=== PATIENT | male | born 1950 | race Caucasian/White ===

== ENCOUNTER 2020-07-30 03:40 | Inpatient (IN) | payer MEDICARE ==
--- NOTE | 2020-07-30 03:58 | ED ---
Recheck HPI - General Chief Complaint: Abdominal Pain Stated Complaint: Pancreatitis Time Seen by Provider: 07/30/20 03:46 Source: patient, EMS, RN notes reviewed, old records reviewed Mode of arrival: EMS Limitations: no limitations - History of Present Illness Initial Comments: This is a 69-year-old male for evaluation. Patient is accepted here in the ER as a transfer from [facility]. Patient has what appears to be in not working on functioning gallbladder with compounding pancreatitis. Patient arrives here in the emergency department feeling well, no recent change in complaints or change in symptoms. Patient was informed at the hospital he does need further evaluation and management. MD Complaint: abnormal lab (What appears to be a gallstone pancreatitis or gallbladder pancreatitis) -: hour(s) Returns Today for: Called Because of Abnormal Lab/Test, needs IV antibiotics, persistent/worsening pain related to initial visit Symptoms Since Prior Visit: worsening pain Context: other (Patient transferred for further evaluation management) Associated Symptoms: nausea, abdominal pain Treatments Prior to Arrival: Given Antibiotics on, Given Pain Meds on - Related Data Home Medications Medication Instructions Recorded Confirmed Atorvastatin [Lipitor] 40 mg PO DAILY 07/30/20 07/30/20 Carbidopa-Levodopa 25-100 mg 1 tab PO BID@1000,1300 07/30/20 07/30/20 [Sinemet 25-100 mg] Carbidopa-Levodopa 25-100 mg 2 tab PO BID@0700,1600 07/30/20 07/30/20 [Sinemet 25-100 mg] Cholecalciferol [Vitamin D3 (25 50 mcg PO DAILY 07/30/20 07/30/20 Mcg = 1000 Iu)] Cyanocobalamin (Vitamin B-12) 1,000 mcg PO BID 07/30/20 07/30/20 [Vitamin B-12] EPINEPHrine (Auto Inject) [Epipen] 0.3 mg IM ONCE PRN 07/30/20 07/30/20 FLUoxetine HCL [PROzac] 20 mg PO DAILY 07/30/20 07/30/20 Gemfibrozil [Lopid] 600 mg PO DAILY 07/30/20 07/30/20 amLODIPine [Norvasc] 10 mg PO DAILY 07/30/20 07/30/20 Previous Rx's Medication Instructions Recorded hydrALAZINE HCL [Apresoline] 50 mg PO TID #90 tab 08/02/20 Allergies Allergy/AdvReac Type Severity Reaction Status Date / Time aspirin Allergy Anaphylaxis Verified 07/30/20 07:15 cyclobenzaprine Allergy Anaphylaxis Verified 07/30/20 07:15 [From Flexeril] Penicillins Allergy Anaphylaxis Verified 07/30/20 07:15 Review of Systems ROS Statement: Those systems with pertinent positive or pertinent negative responses have been documented in the HPI. ROS Other: All systems not noted in ROS Statement are negative. Past Medical History Past Medical History: Hyperlipidemia, Hypertension Additional Past Medical History / Comment(s): Parkinsons, Fibromyalgia History of Any Multi-Drug Resistant Organisms: None Reported Past Surgical History: Unable to Obtain Past Psychological History: Anxiety, Depression Smoking Status: Former smoker Past Alcohol Use History: Occasional Past Drug Use History: None Reported - Past Family History Father Additional Family Medical History / Comment(s): Father never went to the doctors. He lived to be 83 yrs old. Mother Family Medical History: Coronary Artery Disease (CAD), Diabetes Mellitus, Myocardial Infarction (CO) Additional Family Medical History / Comment(s): Mother of a CO at the age of 61 yrs. General Exam Limitations: no limitations General appearance: alert, in no apparent distress Head exam: Present: atraumatic, normocephalic, normal inspection Eye exam: Present: normal appearance, PERRL, EOMI. Absent: scleral icterus, conjunctival injection, periorbital swelling ENT exam: Present: normal exam, mucous membranes moist Neck exam: Present: normal inspection. Absent: tenderness, meningismus, lymphadenopathy Respiratory exam: Present: normal lung sounds bilaterally. Absent: respiratory distress, wheezes, rales, rhonchi, stridor Cardiovascular Exam: Present: regular rate, normal rhythm, normal heart sounds. Absent: systolic murmur, diastolic murmur, rubs, gallop, clicks GI/Abdominal exam: Present: soft, normal bowel sounds. Absent: distended, tenderness, guarding, rebound, rigid Extremities exam: Present: normal inspection, full ROM, normal capillary refill. Absent: tenderness, pedal edema, joint swelling, calf tenderness Back exam: Present: normal inspection Neurological exam: Present: alert, oriented X3, CN II-XII intact Psychiatric exam: Present: normal affect, normal mood Skin exam: Present: warm, dry, intact, normal color. Absent: rash Course Vital Signs 07/30/20 07/30/20 07/30/20 03:42 07:12 11:22 Temperature 98.5 F 98 F 98.0 F Pulse Rate 93 87 89 Respiratory 16 18 18 Rate Blood Pressure 129/63 129/75 153/89 O2 Sat by Pulse 95 99 99 Oximetry 07/30/20 07/30/20 07/30/20 16:13 20:15 22:54 Temperature 98.3 F 98.1 F Pulse Rate 92 100 98 Respiratory 18 18 18 Rate Blood Pressure 137/89 128/84 128/84 O2 Sat by Pulse 94 L 90 L 95 Oximetry - Reevaluation(s) Reevaluation #1: Medical record is reviewed Patient symptoms improved here in the ER Patient family informed of results, questions have been answered Medical Decision Making - Medical Decision Making 69 male to the ER for evaluation of pancreatitis likely gallbladder cause. Patient will be admitted for surgical evaluation management - Lab Data Result diagrams: 08/02/20 06:08 08/02/20 06:08 - Radiology Data Radiology results: report reviewed (Ultrasound gallbladder is pending), image reviewed Disposition Clinical Impression: Abdominal pain, Acute pancreatitis, Gallstone pancreatitis, Leukocytosis Disposition: ADMITTED IP TO THIS [facility] Condition: Fair Is patient prescribed a controlled substance at d/c from ED?: No
[2020-07-30] MEDS ORDERED: IBUPROFEN 400 MG TAB PO PRN (06:00)
[2020-07-30] MEDS ORDERED: NALOXONE 0.4 MG/ML 1 ML VIAL IV PRN (06:00)
[2020-07-30] MEDS: MORPHINE SULFATE 4 MG/ML SYRINGE IV PRN ×2 (06:14→11:25)
[2020-07-30] MEDS ORDERED: PANTOPRAZOLE 40 MG/10 ML VIAL IV SCH (09:00)
[2020-07-30] MEDS ORDERED: ENOXAPARIN 40 MG/0.4 ML SYRINGE SQ SCH (09:00)
[2020-07-30] MEDS: SODIUM CHLORIDE 0.9% 1,000 ML IV SCH ×2 (09:15→17:52)
[2020-07-30 10:47] LABS: Basophils % (A) 0 %; Eosinophils % (A) 0 %; HCT 37.9 % (39.0-53.0); HGB 12.9 gm/dL (13.0-17.5); Lymphocytes # (A) 0.5 k/uL (1.0-4.8); Lymphocytes % (A) 4 %; MCV 85.2 fL (80.0-100.0); Mean Platelet Volume 6.2; Monocytes # (A) 0.6 k/uL (0-1.0); Monocytes % (A) 5 %; Neutrophils # (A) 11.5 k/uL (1.3-7.7); Neutrophils % (A) 91 %; Platelet Count 272 k/uL (150-450); RBC 4.45 m/uL (4.30-5.90); RDW 13.6 % (11.5-15.5); WBC 12.6 k/uL (3.8-10.6)
[2020-07-30 10:51] LABS: AST 408 U/L (17-59); African American GFR (CKD) 23 (>60 ml/min/1.73 sqM); Albumin/Globulin Ratio 1.6; Alkaline Phosphatase 67 U/L (38-126); Anion Gap 11 mmol/L; Blood Urea Nitrogen 51 mg/dL (9-20); Calcium 9.5 mg/dL (8.4-10.2); Carbon Dioxide 23 mmol/L (22-30); Chloride 107 mmol/L (98-107); Globulin 2.5 g/dL; Glucose 184 mg/dL (74-99); Non-African American GFR(CKD) 20 (>60 ml/min/1.73 sqM); Potassium 5.4 mmol/L (3.5-5.1); Sodium 141 mmol/L (137-145); Total Bilirubin 1.4 mg/dL (0.2-1.3); Total Protein 6.5 g/dL (6.3-8.2)
[2020-07-30 10:53] LABS: ALT 85 U/L (4-49)
--- NOTE | 2020-07-30 11:16 | CONS ---
CONSULTATION DATE OF DICTATION: July 30, 2020. REASON FOR CONSULTATION: Acute gallstone pancreatitis. HISTORY OF PRESENT ILLNESS: The patient is a 69-year-old pleasant white male who was transferred from [facility] where he presented with acute onset of severe epigastric pain that started yesterday morning. The pain had progressively got worse and he had multiple episodes of nausea, vomiting. He denies any fever, chills, or night sweats. Never had these symptoms in the past. He went to the emergency room at [facility] and he was noted to have elevated lipase to more than 40,000 and mild elevation of serum transaminases and hence he was transferred to [facility] for further management. He did have a CT of the abdomen and pelvis done at [facility] and the preliminary report showed small gallstones but no biliary ductal dilation. He is feeling somewhat better this morning. Nausea and vomiting has resolved. He never had these symptoms in the past. PAST MEDICAL HISTORY: Past medical history is significant for hypertension, hyperlipidemia, Parkinson disease, anxiety, depression. MEDICATIONS: Medications at home: Norvasc, Lopid, Prozac, Vasotec, vitamin B12, Sinemet, Lipitor and EpiPen. ALLERGIES: Allergies to PENICILLIN, FLEXERIL, and ASPIRIN. SOCIAL HISTORY: No smoking. No alcohol use. PAST SURGICAL HISTORY: Unremarkable. REVIEW OF SYSTEMS: CARDIOPULMONARY: He denies any chest pain or shortness of breath. GENITOURINARY: No dysuria or hematuria. MUSCULOSKELETAL: Unremarkable. SKIN: Unremarkable. ENDOCRINE: Unremarkable. PSYCHIATRIC: Unremarkable. NEUROLOGY: Unremarkable. ENT/VISION: Unremarkable. CONSTITUTIONAL: No recent weight loss. No fever, chills, night sweats. PHYSICAL EXAMINATION: He appears comfortable, no apparent distress. Vital signs are stable. Blood pressure is 129/63, pulse rate 93, temperature 98.5. HEENT EXAMINATION: Unremarkable. Conjunctivae pink. Sclerae anicteric. Oral cavity no lesions. NECK: No JVD or lymph node enlargement. CHEST: Was clear to auscultation. HEART: Regular rate and rhythm. ABDOMEN: Soft. There was severe tenderness in the epigastric area. Rest of the abdomen was benign. Bowel sounds are positive. No organomegaly. EXTREMITIES: No pedal edema. SKIN: No rashes. NEURO: He is alert and oriented x3. No focal deficits. LABS: Labs done at [facility], lipase more than 40,000. T-bilirubin was 1.8. AST was 284, ALT 241. WBC was 20,000, hemoglobin 15.3, platelets normal. IMPRESSION: 1. This is a patient who presents to the hospital with acute onset of severe epigastric pain that started yesterday morning and noted to have elevated lipase consistent with acute pancreatitis. He is also noted to have mild elevation of serum transaminases and bilirubin up to 1.8 and CAT scan of the abdomen done at [facility] showed multiple gallstones but no biliary ductal dilation. Most likely we are dealing with acute gallstone pancreatitis. 2. Leukocytosis, related to pancreatitis. 3. History of hypertension and hyperlipidemia. RECOMMENDATIONS: 1. Aggressive IV hydration. 2. Symptomatic and supportive care. 3. Pain medications as needed. 4. Repeat labs this morning. 5. No plans for any endoscopy intervention at the present time. However, we will consider an ERCP based on his clinical course biochemical parameters. The plan was discussed with the patient. He is agreeable to it. Thank you for this consultation. MMODL / IJN: [id number] /
--- NOTE | 2020-07-30 12:26 | US ---
EXAMINATION TYPE: US gallbladder DATE OF EXAM: 07/30/2020 COMPARISON: [address] CLINICAL HISTORY: pain. 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 Liver diffusely heterogeneous which may represent diffuse hepatocellular disease, hepatitis or hep atic steatosis. 2. No gallbladder stones.
[2020-07-30 12:34] LABS: Lipase >20000 U/L (23-300)
--- NOTE | 2020-07-30 13:16 | P.GSCN ---
History of Present Illness Consult date: 07/30/20 History of present illness: CHIEF COMPLAINT: Abdominal pain HISTORY OF PRESENT ILLNESS: This is a 69-year-old male who was a transfer from [facility]. Patient has a known past medical history hypertension, hyperlipidemia, Parkinson's and fibromyalgia. Patient initially presented to [place] with a 2 day history of epigastric abdominal pain. He reports pain worsened last night around 8 PM. He was having nausea and vomiting. The pain started on the right side of his abdomen crossed into the epigastric area and also had pain radiating to his back. He denies any fever, chills or sweats. Denies having any symptoms like this in the past. He had a lipase that was elevated at 40,000 and mildly elevated liver enzymes noted on labs from [place]. Patient had a computed tomography scan of the abdomen and pelvis at [place] they had shown severe acute inflammation changes are results of gastritis, duodenitis, duodenitis, pancreatitis and cholecystitis. Punctate calculus within the duodenum at the sphincter body and gallbladder wall thickening and gallbladder wall distention with calculi in the gallbladder. Patient has been admitted to the hospital for pancreatitis. He is currently nothing by mouth and receiving IV fluids. GI is also on the case. PAST MEDICAL HISTORY: See list. PAST SURGICAL HISTORY: See list. MEDICATIONS: See list. ALLERGIES: See list. SOCIAL HISTORY: No illicit drug use. REVIEW OF SYSTEMS: CONSTITUTIONAL: Denies fever or chills. HEENT: Denies blurred vision, vision changes, or eye pain. Denies hemoptysis CARDIOVASCULAR: Denies chest pain or pressure. RESPIRATORY: No shortness of breath. GASTROINTESTINAL: See HPI for pertinent findings HEMATOLOGIC: Denies bleeding disorders. GENITOURINARY: Denies any blood in urine or increased urinary frequency. SKIN: Denies pruitis. Denies rash. PHYSICAL EXAM: VITAL SIGNS: Reviewed GENERAL: Well-developed in no acute distress. HEENT: No sclera icterus. Extraocular movements grossly intact. Moist buccal mucosa. Head is atraumatic, normocephalic. No nasal drainage. ABDOMEN: Soft. Nondistended. Tenderness with palpation of the epigastric area and right upper quadrant NEUROLOGIC: Alert and oriented. Cranial nerves II through XII grossly intact. LABORATORY DATA: [place] labs WBC 20 Hgb 13.1 and creatinine 2.8 AST 271 ALT 24 total bili 1.4 lipase 40,000 [facility] labs WBC 12.6 Hgb 12.9 potassium 5.4 creatinine 3 Total bili 1.4 AST 408 ALT 85 alk phos 67 lipase 20,000 IMAGING: Gallbladder ultrasound liver diffusely heterogenesis which may represent diffuse hepatocellular disease, hepatitis or hepatic steatosis. No gallbladder stones ASSESSMENT: 1. Acute pancreatitis PLAN: -Keep patient nothing by mouth -Continue IV fluids -Continue pain medication as needed -Await GIs decision regarding ERCP -Follow up on labs in a.m. -Further recommendations forthcoming per surgeon Thank you for this consultation Physician Marketing Agent note has been reviewed by physician. Signing provider agrees with the documented findings, assessment, and plan of care. Past Medical History Past Medical History: Hyperlipidemia, Hypertension Additional Past Medical History / Comment(s): Parkinsons, Fibromyalgia History of Any Multi-Drug Resistant Organisms: None Reported Past Surgical History: Unable to Obtain Past Psychological History: Anxiety, Depression Smoking Status: Former smoker Past Alcohol Use History: Occasional Past Drug Use History: None Reported Medications and Allergies Home Medications Medication Instructions Recorded Confirmed Type Atorvastatin [Lipitor] 40 mg PO DAILY 07/30/20 07/30/20 History Carbidopa-Levodopa 25-100 mg 1 tab PO BID@1000,1300 07/30/20 07/30/20 History [Sinemet 25-100] Carbidopa-Levodopa 25-100 mg 2 tab PO BID@0700,1600 07/30/20 07/30/20 History [Sinemet 25-100] Cholecalciferol [Vitamin D3 (25 50 mcg PO DAILY 07/30/20 07/30/20 History Mcg = 1000 Iu)] Cyanocobalamin (Vitamin B-12) 1,000 mcg PO BID 07/30/20 07/30/20 History [Vitamin B-12] EPINEPHrine (Auto Inject) [Epipen] 0.3 mg IM ONCE PRN 07/30/20 07/30/20 History Enalapril [Vasotec] 20 mg PO BID 07/30/20 07/30/20 History FLUoxetine HCL [PROzac] 20 mg PO DAILY 07/30/20 07/30/20 History Gemfibrozil [Lopid] 600 mg PO DAILY 07/30/20 07/30/20 History amLODIPine [Norvasc] 10 mg PO DAILY 07/30/20 07/30/20 History Allergies Allergy/AdvReac Type Severity Reaction Status Date / Time aspirin Allergy Anaphylaxis Verified 07/30/20 07:15 cyclobenzaprine Allergy Anaphylaxis Verified 07/30/20 07:15 [From Flexeril] Penicillins Allergy Anaphylaxis Verified 07/30/20 07:15 Surgical - Exam Vital Signs Temp Pulse Resp BP Pulse Ox 98.5 F 93 16 129/63 95 07/30/20 03:42 07/30/20 03:42 07/30/20 03:42 07/30/20 03:42 07/30/20 03:42 Results - Labs 07/30/20 10:25 07/30/20 10:25 Abnormal Lab Results - Last 24 Hours (Table) 07/30/20 07/30/20 Range/Units 10:25 10:25 WBC 12.6 H (3.8-10.6) k/uL Hgb 12.9 L (13.0-17.5) gm/dL Hct 37.9 L (39.0-53.0) % Neutrophils # 11.5 H (1.3-7.7) k/uL Lymphocytes # 0.5 L (1.0-4.8) k/uL Potassium 5.4 H (3.5-5.1) mmol/L BUN 51 H (9-20) mg/dL Creatinine 3.00 H (0.66-1.25) mg/dL Glucose 184 H (74-99) mg/dL Total Bilirubin 1.4 H (0.2-1.3) mg/dL AST 408 H (17-59) U/L ALT 85 H (4-49) U/L Lipase >27317 H (23-300) U/L Diabetes panel 07/30/20 Range/Units 10:25 Sodium 141 (137-145) mmol/L Potassium 5.4 H (3.5-5.1) mmol/L Chloride 107 (98-107) mmol/L Carbon Dioxide 23 (22-30) mmol/L BUN 51 H (9-20) mg/dL Creatinine 3.00 H (0.66-1.25) mg/dL Glucose 184 H (74-99) mg/dL Calcium 9.5 (8.4-10.2) mg/dL AST 408 H (17-59) U/L ALT 85 H (4-49) U/L Alkaline Phosphatase 67 (38-126) U/L Total Protein 6.5 (6.3-8.2) g/dL Albumin 4.0 (3.5-5.0) g/dL Calcium panel 07/30/20 Range/Units 10:25 Calcium 9.5 (8.4-10.2) mg/dL Albumin 4.0 (3.5-5.0) g/dL Pituitary panel 07/30/20 Range/Units 10:25 Sodium 141 (137-145) mmol/L Potassium 5.4 H (3.5-5.1) mmol/L Chloride 107 (98-107) mmol/L Carbon Dioxide 23 (22-30) mmol/L BUN 51 H (9-20) mg/dL Creatinine 3.00 H (0.66-1.25) mg/dL Glucose 184 H (74-99) mg/dL Calcium 9.5 (8.4-10.2) mg/dL Adrenal panel 07/30/20 Range/Units 10:25 Sodium 141 (137-145) mmol/L Potassium 5.4 H (3.5-5.1) mmol/L Chloride 107 (98-107) mmol/L Carbon Dioxide 23 (22-30) mmol/L BUN 51 H (9-20) mg/dL Creatinine 3.00 H (0.66-1.25) mg/dL Glucose 184 H (74-99) mg/dL Calcium 9.5 (8.4-10.2) mg/dL Total Bilirubin 1.4 H (0.2-1.3) mg/dL AST 408 H (17-59) U/L ALT 85 H (4-49) U/L Alkaline Phosphatase 67 (38-126) U/L Total Protein 6.5 (6.3-8.2) g/dL Albumin 4.0 (3.5-5.0) g/dL
[2020-07-30] MEDS: HYDROmorphone 1 MG/ML 1 ML SYRINGE IVP PRN (14:51)
[2020-07-30] MEDS ORDERED: HYDROmorphone 0.5 MG/0.5 ML SYRINGE IVP PRN (15:14)
--- NOTE | 2020-07-30 15:16 | P.HPIM ---
History of Present Illness Patient is a 69-year-old [facility] male was transferred from a [facility] admitted with severe epigastric abdominal pain along with nausea vomiting multiple episodes. Patient will had a CT of the abdomen also found to have highly elevated lipase was subsequently transferred here for management of pancreatitis CT did show some duodenitis gastritis and possibility of cholecystitis. Surgery evaluated the patient repeated ultrasound of the gallbladder which didn't show any gallstones at this time. Patient does have leukocytosis patient the was having severe abdominal pain which significantly improved today. Patient lipase continues to be elevated. Gastroenterology was consulted as well with concerns of choledocholithiasis although these were not evident on the gallbladder ultrasound. Patient does have history of Parkinson's and patient does have some residual parkinsonian tremor. Patient's creatinine is found to be around 3 his baseline is not available. Review of Systems REVIEW OF SYSTEMS: CONSTITUTIONAL: No fever, no malaise, no fatigue. HEENT: No recent visual problems or hearing problems. Denied any sore throat. CARDIOVASCULAR: No chest pain, orthopnea, PND, no palpitations, no syncope. PULMONARY: No shortness of breath, no cough, no hemoptysis. GASTROINTESTINAL: As mentioned in HPI NEUROLOGICAL: No headaches, no weakness, no numbness. HEMATOLOGICAL: Denies any bleeding or petechiae. GENITOURINARY: Denies any burning micturition, frequency, or urgency. MUSCULOSKELETAL/RHEUMATOLOGICAL: Denies any joint pain, swelling, or any muscle pain. ENDOCRINE: Denies any polyuria or polydipsia. The rest of the 14-point review of systems is negative. Past Medical History Past Medical History: Hyperlipidemia, Hypertension Additional Past Medical History / Comment(s): Parkinsons, Fibromyalgia History of Any Multi-Drug Resistant Organisms: None Reported Past Surgical History: Unable to Obtain Past Psychological History: Anxiety, Depression Smoking Status: Former smoker Past Alcohol Use History: Occasional Past Drug Use History: None Reported Medications and Allergies Home Medications Medication Instructions Recorded Confirmed Type Atorvastatin [Lipitor] 40 mg PO DAILY 07/30/20 07/30/20 History Carbidopa-Levodopa 25-100 mg 1 tab PO BID@1000,1300 07/30/20 07/30/20 History [Sinemet 25-100] Carbidopa-Levodopa 25-100 mg 2 tab PO BID@0700,1600 07/30/20 07/30/20 History [Sinemet 25-100] Cholecalciferol [Vitamin D3 (25 50 mcg PO DAILY 07/30/20 07/30/20 History Mcg = 1000 Iu)] Cyanocobalamin (Vitamin B-12) 1,000 mcg PO BID 07/30/20 07/30/20 History [Vitamin B-12] EPINEPHrine (Auto Inject) [Epipen] 0.3 mg IM ONCE PRN 07/30/20 07/30/20 History Enalapril [Vasotec] 20 mg PO BID 07/30/20 07/30/20 History FLUoxetine HCL [PROzac] 20 mg PO DAILY 07/30/20 07/30/20 History Gemfibrozil [Lopid] 600 mg PO DAILY 07/30/20 07/30/20 History amLODIPine [Norvasc] 10 mg PO DAILY 07/30/20 07/30/20 History Allergies Allergy/AdvReac Type Severity Reaction Status Date / Time aspirin Allergy Anaphylaxis Verified 07/30/20 07:15 cyclobenzaprine Allergy Anaphylaxis Verified 07/30/20 07:15 [From Flexeril] Penicillins Allergy Anaphylaxis Verified 07/30/20 07:15 Physical Exam Vitals: Vital Signs Temp Pulse Resp BP Pulse Ox 07/30/20 11:22 98.0 F 89 18 153/89 99 07/30/20 07:12 98 F 87 18 129/75 99 07/30/20 03:42 98.5 F 93 16 129/63 95 Intake and Output 07/30/20 07/30/20 07/30/20 06:59 14:59 22:59 Other: Weight 75.75 kg PHYSICAL EXAMINATION: GENERAL: The patient is alert and oriented x3, not in any acute distress. Well developed, well nourished. HEENT: Pupils are round and equally reacting to light. EOMI. No scleral icterus. No conjunctival pallor. Normocephalic, atraumatic. No pharyngeal erythema. No thyromegaly. CARDIOVASCULAR: S1 and S2 present. No murmurs, rubs, or gallops. PULMONARY: Chest is clear to auscultation, no wheezing or crackles. ABDOMEN: Soft, mild tenderness in the epigastric area, nondistended, normoactive bowel sounds. No palpable organomegaly. MUSCULOSKELETAL: No joint swelling or deformity. EXTREMITIES: No cyanosis, clubbing, or pedal edema. NEUROLOGICAL: Gross neurological examination did not reveal any focal deficits. SKIN: No rashes. Results CBC & Chem 7: 07/30/20 10:25 07/30/20 10:25 Labs: Abnormal Lab Results - Last 24 Hours (Table) 07/30/20 07/30/20 Range/Units 10:25 10:25 WBC 12.6 H (3.8-10.6) k/uL Hgb 12.9 L (13.0-17.5) gm/dL Hct 37.9 L (39.0-53.0) % Neutrophils # 11.5 H (1.3-7.7) k/uL Lymphocytes # 0.5 L (1.0-4.8) k/uL Potassium 5.4 H (3.5-5.1) mmol/L BUN 51 H (9-20) mg/dL Creatinine 3.00 H (0.66-1.25) mg/dL Glucose 184 H (74-99) mg/dL Total Bilirubin 1.4 H (0.2-1.3) mg/dL AST 408 H (17-59) U/L ALT 85 H (4-49) U/L Lipase >22342 H (23-300) U/L Assessment and Plan Plan: -Acute pancreatitis: Etiology is not clear patient is not an alcoholic. Patient will be continued on IV fluids patient will remain nothing by mouth bowel rest. Although some of his medications his medications like carbidopa levodopa and Prozac. Gastroenterology and general surgery will evaluated the patient -Renal failure: Unsure whether patient has acute renal failure on chronic kidney disease as I do not have had his baseline available patient will be started on fluids we'll repeat his liver enzymes basic metabolic profile tomorrow. -Hyperkalemia: Secondary to lisinopril and acute renal failure which will be held -Hypertension patient is on Norvasc which will be resumed -Gastritis duodenitis for which patient will be on Protonix -DVT prophylaxis with Lovenox
[2020-07-30] MEDS: CARBIDOPA-LEVODOPA 25-100 MG 1 EACH TAB PO SCH (17:52)
[2020-07-30] MEDS: PANTOPRAZOLE 40 MG/10 ML VIAL IV SCH (21:19)
[2020-07-31] MEDS: SODIUM CHLORIDE 0.9% 1,000 ML IV SCH ×4 (04:13→21:44)
[2020-07-31] MEDS: amLODIPine 10 MG TAB PO SCH (08:11)
[2020-07-31] MEDS: ENOXAPARIN 30 MG/0.3 ML SYRINGE SQ SCH (08:11)
[2020-07-31] MEDS: FLUoxetine HCL 20 MG CAP PO SCH (08:12)
[2020-07-31] MEDS: CARBIDOPA-LEVODOPA 25-100 MG 1 EACH TAB PO SCH ×4 (08:12→16:12)
[2020-07-31] MEDS: PANTOPRAZOLE 40 MG/10 ML VIAL IV SCH ×2 (08:12→21:44)
[2020-07-31] MEDS: HYDROmorphone 1 MG/ML 1 ML SYRINGE IVP PRN ×2 (08:19→21:55)
[2020-07-31 12:38] LABS: African American GFR (CKD) 19.2 (60.0-200.0); Albumin 3.9 g/dL (3.80-4.90); Albumin/Globulin Ratio 1.95 (1.60-3.17); Anion Gap 13.1 mmol/L (4.00-12.00); Calcium 9.4 mg/dL (8.7-10.3); Carbon Dioxide 19.9 mmol/L (21.6-31.8); Magnesium 1.6 mg/dL (1.5-2.4); Non-African American GFR(CKD) 16.6 (60.0-200.0); Potassium 4.9 mmol/L (3.5-5.5); Total Bilirubin 0.9 mg/dL (0.2-1.2); Total Protein 5.9 g/dL (6.2-8.2)
--- NOTE | 2020-07-31 12:59 | P.PN ---
Subjective Progress Note Date: 07/31/20 Principal diagnosis: Epigastric pain, pancreatitis This is a pleasant 69-year-old male patient who was transferred from [facility] very presented with acute onset of severe epigastric pain that started 2 days ago. The pain progressively got worse he had multiple episodes of nausea and vomiting. He denied any fevers or chills. At [facility] he was noted to have an elevated lipase greater than 40,000 subcu was transferred to [facility]. He had a CT of the abdomen and pelvis done at [facility] that showed small gallstones but no biliary ductal dilation. Today the patient is seen and examined lying in bed. He states his abdominal pain has improved. He denies any nausea or vomiting. He has been afebrile with no acute changes through the night. His lipase continues to improve and his 1923 compared to yesterday at greater than 20,000. Total bilirubin 0.9, AST 65, ALT 57, and alkaline phosphatase 52. Objective - Vital Signs Vital signs: Vital Signs Temp 98.0 F 07/31/20 04:58 Pulse 100 07/31/20 04:58 Resp 20 07/31/20 04:58 BP 134/80 07/31/20 04:58 Pulse Ox 95 07/31/20 04:58 Intake & Output 07/30/20 07/31/20 07/31/20 18:59 06:59 18:59 Weight 75.75 kg Other: Voiding Method Toilet Toilet - Exam General appearance: The patient is alert, oriented, appears in no acute distress. HET: Head is normocephalic and atraumatic. Conjunctiva pink. Sclera anicteric. Neck: Supple without lymphadenopathy. Abdomen: Soft, mild epigastric tenderness, nondistended with bowel sounds. No guarding or rigidity. Extremities: Normal skin color and turgor. No pedal edema Skin: No rashes, no jaundice Neurological: No focal deficits. Alert and oriented 3. - Labs CBC & Chem 7: 07/30/20 10:25 07/31/20 06:53 Labs: Abnormal Lab Results - Last 24 Hours (Table) 07/30/20 Range/Units 10:25 Potassium 5.4 H (3.5-5.1) mmol/L BUN 51 H (9-20) mg/dL Creatinine 3.00 H (0.66-1.25) mg/dL Glucose 184 H (74-99) mg/dL Total Bilirubin 1.4 H (0.2-1.3) mg/dL AST 408 H (17-59) U/L ALT 85 H (4-49) U/L Lipase >44526 H (23-300) U/L Assessment and Plan (1) Epigastric pain Narrative/Plan: This is 69-year-old gentleman who was a transfer from [facility] acute severe epigastric pain that started 2 days ago, he was noted to have an elevated lipase consistent with acute pancreatitis. He was also noted to have mild elevation of serum transaminases and bilirubin up to 1.8. A computed tomography scan of the abdomen done at [facility] showed multiple stones but no biliary ductal dilation. Most likely dealing with acute gallstone pancreatitis. Current Visit: Yes Status: Acute Code(s): R10.13 - EPIGASTRIC PAIN SNOMED Code(s): 90102671 (2) Acute pancreatitis Narrative/Plan: Leukocytosis related to pancreatitis Current Visit: Yes Status: Acute Code(s): K85.90 - ACUTE PANCREATITIS WITHOUT NECROSIS OR INFECTION, UNSP SNOMED Code(s): 125852357 Plan: 1. Continue supportive care 2. Aggressive IV hydration 3. Pain medication as needed 4. Repeat LFTs, lipase in the morning 5. No plans for any endoscopic intervention at this time. We will continue to monitor. 6. Patient may have clear liquid diet 7. Surgery on consult, planning for cholecystectomy tomorrow with Dr. Shane Thank you for this consultation we will continue to follow Dr. Rufina Kapoor I agree with the dictator's note, documented as a scribe by Karen Ness.
[2020-07-31 13:03] LABS: Basophils # (A) 0.01 X 10*3/uL (0.00-0.10); Basophils % (A) 0.1 %; Crenated RBC 2+; Eosinophils # (A) 0 X 10*3/uL (0.04-0.35); Eosinophils % (A) 0 %; HCT 38.7 % (39.6-50.0); HGB 12.5 g/dL (13.0-17.0); Lymphocytes # (A) 0.46 X 10*3/uL (0.90-5.00); Lymphocytes % (A) 3.2 %; MCHC 32.3 g/dL (32.0-37.0); MCV 89.8 fL (80.0-97.0); Mean Platelet Volume 9.4 fL (9.5-12.2); Monocytes # (A) 0.68 X 10*3/uL (0.20-1.00); Monocytes % (A) 4.7 %; Neutrophils # (A) 13.25 X 10*3/uL (1.80-7.70); Neutrophils % (A) 91.5 %; Platelet Count 214 X 10*3/uL (140-440); RBC 4.31 X 10*6/uL (4.40-5.60); RDW 13.5 % (11.5-14.5); WBC 14.47 X 10*3/uL (4.50-10.00)
[2020-07-31 14:08] VITALS: BMI 23.9
--- NOTE | 2020-07-31 15:02 | P.PN ---
Subjective Progress Note Date: 07/31/20 CHIEF COMPLAINT: Abdominal pain HISTORY OF PRESENT ILLNESS: Patient is followed for his gallstone pancreatitis. He is still requiring the Dilaudid for epigastric pain. However, does report that the pain is decreased from yesterday. He denies any nausea or vomiting. Afebrile. WBC up at 14.47 hemoglobin 12.5 potassium 4.9 creatinine 3.5 total bilirubin 0.9 AST 65 ALT 57 lipase 1923 PHYSICAL EXAM: VITAL SIGNS: Reviewed. GENERAL: Well-developed in no acute distress. HEENT: No sclera icterus. Extraocular movements grossly intact. Moist buccal mucosa. Head is atraumatic, normocephalic. ABDOMEN: Soft. Nondistended. Epigastric tenderness NEUROLOGIC: Alert and oriented. Cranial nerves II through XII grossly intact. ASSESSMENT: 1. Acute pancreatitis most likely due to gallstones PLAN: -Patient is scheduled for laparoscopic cholecystectomy with Dr. Shane tomorrow, 08/01/2020 -Patient can have clear liquid diet and then nothing by mouth after midnight -Continue IV fluids -Continue pain medication as needed -Follow up on labs in a.m. Physician Manager Room note has been reviewed by physician. Signing provider agrees with the documented findings, assessment, and plan of care. Objective - Vital Signs Vital signs: Vital Signs Temp 97.8 F 07/31/20 13:10 Pulse 102 H 07/31/20 13:10 Resp 20 07/31/20 13:10 BP 131/78 07/31/20 13:10 Pulse Ox 94 L 07/31/20 13:10 Intake & Output 07/30/20 07/31/20 07/31/20 18:59 06:59 18:59 Weight 75.75 kg 75.75 kg Other: Voiding Method Toilet Toilet - Labs CBC & Chem 7: 07/31/20 06:53 07/31/20 06:53 Labs: Abnormal Lab Results - Last 24 Hours (Table) 07/31/20 07/31/20 Range/Units 06:53 06:53 WBC 14.47 H (4.50-10.00) X 10*3/uL RBC 4.31 L (4.40-5.60) X 10*6/uL Hgb 12.5 L (13.0-17.0) g/dL Hct 38.7 L (39.6-50.0) % MPV 9.4 L (9.5-12.2) fL Immature Gran # 0.07 H (0.00-0.04) X 10*3/uL Neutrophils # 13.25 H (1.80-7.70) X 10*3/uL Lymphocytes # 0.46 L (0.90-5.00) X 10*3/uL Eosinophils # 0 L (0.04-0.35) X 10*3/uL Chloride 112 H (96-109) mmol/L Carbon Dioxide 19.9 L (21.6-31.8) mmol/L Anion Gap 13.10 H (4.00-12.00) mmol/L BUN 63.0 H (9.0-27.0) mg/dL Creatinine 3.5 H (0.6-1.5) mg/dL Est GFR (CKD-EPI)AfAm 19.2 L (60.0-200.0) Est GFR (CKD-EPI)NonAf 16.6 L (60.0-200.0) Glucose 145 H (70-110) mg/dL AST 65 H (14-35) U/L ALT 57 H (10-49) U/L Total Protein 5.9 L (6.2-8.2) g/dL Lipase 1923 H (14-60) U/L
[2020-07-31] MEDS ORDERED: LEVOFLOXACIN 500MG-D5W PMX 500 MG in DEXTROSE/WATER 1 100ML.BAG IVPB SCH (15:15)
--- NOTE | 2020-07-31 16:38 | P.PN ---
Subjective Progress Note Date: 07/31/20 Patient is a 69-year-old pleasant male was transferred from a [facility] admitted with severe epigastric abdominal pain along with nausea vomiting multiple episodes. Patient will had a CT of the abdomen also found to have highly elevated lipase was subsequently transferred here for management of pancreatitis CT did show some duodenitis gastritis and possibility of cholecystitis. Surgery evaluated the patient repeated ultrasound of the gallbladder which didn't show any gallstones at this time. Patient does have leukocytosis patient the was having severe abdominal pain which significantly improved today. Patient lipase continues to be elevated. Gastroenterology was consulted as well with concerns of choledocholithiasis although these were not evident on the gallbladder ultrasound. Patient does have history of Parkinson's and patient does have some residual parkinsonian tremor. Patient's creatinine is found to be around 3 his baseline is not available. 07/31/2020 Patient is seen and evaluated and follow-up continues to have abdominal discomfort and is nothing by mouth. GI and surgery following an patient is awaiting to undergo cholecystectomy tomorrow. Patient's kidney functions continue to worsen and current creatinine is 3.5. Nephrology consulted. We'll continue with IV hydration and closely monitor. Will repeat a.m. labs. Patient will be started on clear liquids and nothing by mouth again at midnight. Review of systems: Constitutional: No reports of fatigue, fever, or chills Cardiovascular: No reports of chest pain or palpitations Respiratory: No reports of shortness of breath or cough GI: No reports of nausea, vomiting, or diarrhea, reports continued abdominal discomfort : No reports of dysuria or retention Neurovascular: No reports of weakness or numbness All medications have been reviewed Objective - Vital Signs Vital signs: Vital Signs Temp 97.8 F 07/31/20 13:10 Pulse 102 H 07/31/20 13:10 Resp 20 07/31/20 13:10 BP 131/78 07/31/20 13:10 Pulse Ox 94 L 07/31/20 13:10 Intake & Output 07/30/20 07/31/20 07/31/20 18:59 06:59 18:59 Weight 75.75 kg 75.75 kg Other: Voiding Method Toilet Toilet - Exam GENERAL: The patient is alert and oriented x3, not in any acute distress. Well developed, well nourished. HEENT: Pupils are round and equally reacting to light. EOMI. No scleral icterus. No conjunctival pallor. Normocephalic, atraumatic. No pharyngeal erythema. No thyromegaly. CARDIOVASCULAR: S1 and S2 present. No murmurs, rubs, or gallops. PULMONARY: Chest is clear to auscultation, no wheezing or crackles. ABDOMEN: Soft, mild tenderness in the epigastric area, nondistended, normoactive bowel sounds. No palpable organomegaly. MUSCULOSKELETAL: No joint swelling or deformity. EXTREMITIES: No cyanosis, clubbing, or pedal edema. NEUROLOGICAL: Gross neurological examination did not reveal any focal deficits. SKIN: No rashes. - Labs CBC & Chem 7: 07/31/20 06:53 07/31/20 06:53 Labs: Abnormal Lab Results - Last 24 Hours (Table) 07/31/20 07/31/20 Range/Units 06:53 06:53 WBC 14.47 H (4.50-10.00) X 10*3/uL RBC 4.31 L (4.40-5.60) X 10*6/uL Hgb 12.5 L (13.0-17.0) g/dL Hct 38.7 L (39.6-50.0) % MPV 9.4 L (9.5-12.2) fL Immature Gran # 0.07 H (0.00-0.04) X 10*3/uL Neutrophils # 13.25 H (1.80-7.70) X 10*3/uL Lymphocytes # 0.46 L (0.90-5.00) X 10*3/uL Eosinophils # 0 L (0.04-0.35) X 10*3/uL Chloride 112 H (96-109) mmol/L Carbon Dioxide 19.9 L (21.6-31.8) mmol/L Anion Gap 13.10 H (4.00-12.00) mmol/L BUN 63.0 H (9.0-27.0) mg/dL Creatinine 3.5 H (0.6-1.5) mg/dL Est GFR (CKD-EPI)AfAm 19.2 L (60.0-200.0) Est GFR (CKD-EPI)NonAf 16.6 L (60.0-200.0) Glucose 145 H (70-110) mg/dL AST 65 H (14-35) U/L ALT 57 H (10-49) U/L Total Protein 5.9 L (6.2-8.2) g/dL Lipase 1923 H (14-60) U/L Assessment and Plan Assessment: -Acute pancreatitis: Etiology is not clear patient is not an alcoholic. Patient will be continued on IV fluids patient will remain nothing by mouth bowel rest. Although some of his medications have been resumed like carbidopa levodopa and Prozac. Gastroenterology and general surgery will evaluated the patient. Surgery planning on cholecystectomy tomorrow -Renal failure: Unsure whether patient has acute renal failure on chronic kidney disease as I do not have had his baseline available patient will be started on fluids. Creatinine is worse today at 3.5 and will consult nephrology. Continue with IV fluids -Hyperkalemia: Secondary to lisinopril and acute renal failure which will be held -Hypertension patient is on Norvasc which will be resumed -Gastritis duodenitis for which patient will be on Protonix -DVT prophylaxis with Lovenox plan: Continue with current medications and IV fluids. Surgery and GI following and planning cholecystectomy tomorrow. Nephrology consulted as kidney functions have worsened and current creatinine is 3.5. Patient was nothing by mouth although started on clear liquids and tolerating and will be nothing by mouth at midnight. Repeat a.m. labs and continue to monitor closely.
[2020-08-01] MEDS: HYDROmorphone 1 MG/ML 1 ML SYRINGE IVP PRN ×2 (02:03→09:56)
[2020-08-01] MEDS: SODIUM CHLORIDE 0.9% 1,000 ML IV SCH ×2 (05:30→17:27)
[2020-08-01 07:07] LABS: Basophils % (A) 0 %; Eosinophils # (A) 0.1 k/uL (0-0.7); Eosinophils % (A) 1 %; HGB 12.2 gm/dL (13.0-17.5); Lymphocytes # (A) 0.7 k/uL (1.0-4.8); Lymphocytes % (A) 5 %; MCH 29.4 pg (25.0-35.0); Mean Platelet Volume 6.5; Monocytes # (A) 0.5 k/uL (0-1.0); Monocytes % (A) 4 %; Neutrophils # (A) 11.4 k/uL (1.3-7.7); Neutrophils % (A) 90 %; Platelet Count 237 k/uL (150-450); RBC 4.16 m/uL (4.30-5.90); RDW 13.1 % (11.5-15.5); WBC 12.8 k/uL (3.8-10.6)
[2020-08-01 07:17] LABS: ALT 27 U/L (4-49); AST 48 U/L (17-59); African American GFR (CKD) 24 (>60 ml/min/1.73 sqM); Albumin 3.4 g/dL (3.5-5.0); Albumin/Globulin Ratio 1.2; Alkaline Phosphatase 42 U/L (38-126); Anion Gap 11 mmol/L; Blood Urea Nitrogen 50 mg/dL (9-20); Calcium 9.6 mg/dL (8.4-10.2); Carbon Dioxide 20 mmol/L (22-30); Chloride 109 mmol/L (98-107); Globulin 2.8 g/dL; Glucose 131 mg/dL (74-99); Lipase 1915 U/L (23-300); Non-African American GFR(CKD) 21 (>60 ml/min/1.73 sqM); Sodium 140 mmol/L (137-145); Total Bilirubin 1.2 mg/dL (0.2-1.3); Total Protein 6.2 g/dL (6.3-8.2)
[2020-08-01 07:18] LABS: Potassium 4.1 mmol/L (3.5-5.1)
[2020-08-01] MEDS: amLODIPine 10 MG TAB PO SCH (09:56)
[2020-08-01] MEDS: PANTOPRAZOLE 40 MG/10 ML VIAL IV SCH ×2 (09:56→21:27)
[2020-08-01] MEDS: FLUoxetine HCL 20 MG CAP PO SCH (09:57)
[2020-08-01] MEDS: CARBIDOPA-LEVODOPA 25-100 MG 1 EACH TAB PO SCH ×5 (09:58→17:24)
[2020-08-01] MEDS: ENOXAPARIN 30 MG/0.3 ML SYRINGE SQ SCH (09:58)
[2020-08-01] MEDS ORDERED: SODIUM CHLORIDE 0.9% 1,000 ML IV ONE (10:34)
--- NOTE | 2020-08-01 10:41 | P.PN ---
Subjective Progress Note Date: 08/01/20 Patient is a 69-year-old pleasant male was transferred from a [facility] admitted with severe epigastric abdominal pain along with nausea vomiting multiple episodes. Patient will had a CT of the abdomen also found to have highly elevated lipase was subsequently transferred here for management of pancreatitis CT did show some duodenitis gastritis and possibility of cholecystitis. Surgery evaluated the patient repeated ultrasound of the gallbladder which didn't show any gallstones at this time. Patient does have leukocytosis patient the was having severe abdominal pain which significantly improved today. Patient lipase continues to be elevated. Gastroenterology was consulted as well with concerns of choledocholithiasis although these were not evident on the gallbladder ultrasound. Patient does have history of Parkinson's and patient does have some residual parkinsonian tremor. Patient's creatinine is found to be around 3 his baseline is not available. 07/31/2020 Patient is seen and evaluated and follow-up continues to have abdominal discomfort and is nothing by mouth. GI and surgery following an patient is awaiting to undergo cholecystectomy tomorrow. Patient's kidney functions continue to worsen and current creatinine is 3.5. Nephrology consulted. We'll continue with IV hydration and closely monitor. Will repeat a.m. labs. Patient will be started on clear liquids and nothing by mouth again at midnight. 08/01/2020 Patient is seen in follow-up this morning with no acute overnight issues. Patient continues to have abdominal discomfort and awaiting to undergo cholecystectomy this morning. Patient creatinine was found to be 3.5 although has improved today at 2.55 and patient does have a history of chronic kidney disease stage III and one kidney per at the bedside. Patient is on gentle IV hydration will continue. Patient is currently nothing by mouth for the procedure. Nephrology was consulted and currently pending. Patient is cons idered low risk and medically clear for surgery this morning. Review of systems: Constitutional: No reports of fatigue, fever, or chills Cardiovascular: No reports of chest pain or palpitations Respiratory: No reports of shortness of breath or cough GI: No reports of nausea, vomiting, or diarrhea, reports continued abdominal discomfort : No reports of dysuria or retention Neurovascular: No reports of weakness or numbness All medications have been reviewed Objective - Vital Signs Vital signs: Vital Signs Temp 97.8 F 08/01/20 05:11 Pulse 102 H 08/01/20 05:11 Resp 16 08/01/20 05:11 BP 163/89 08/01/20 05:11 Pulse Ox 91 L 08/01/20 05:11 Intake & Output 07/31/20 08/01/20 08/01/20 18:59 06:59 18:59 Intake Total 1800 1000 Output Total 200 950 Balance 1600 50 Weight 75.75 kg Intake: Intake, IV Titration 1800 1000 Amount Sodium Chloride 0.9% 1, 1800 1000 000 ml @ 100 mls/hr IV . Q[facility]H [facility] Rx#:[id number] Output: Urine 200 950 Other: Voiding Method Toilet Toilet # Voids 0 # Bowel Movements 0 - Exam GENERAL: The patient is alert and oriented x3, not in any acute distress. Well developed, well nourished. HEENT: Pupils are round and equally reacting to light. EOMI. No scleral icterus. No conjunctival pallor. Normocephalic, atraumatic. No pharyngeal erythema. No thyromegaly. CARDIOVASCULAR: S1 and S2 present. No murmurs, rubs, or gallops. PULMONARY: Chest is clear to auscultation, no wheezing or crackles. ABDOMEN: Soft, mild tenderness in the epigastric area, nondistended, normoactive bowel sounds. No palpable organomegaly. MUSCULOSKELETAL: No joint swelling or deformity. EXTREMITIES: No cyanosis, clubbing, or pedal edema. NEUROLOGICAL: Gross neurological examination did not reveal any focal deficits. SKIN: No rashes. - Labs CBC & Chem 7: 08/01/20 06:18 08/01/20 06:18 Labs: Abnormal Lab Results - Last 24 Hours (Table) 07/31/20 07/31/20 08/01/20 Range/Units 06:53 06:53 06:18 WBC 14.47 H 12.8 H (4.50-10.00) X 10*3/uL RBC 4.31 L 4.16 L (4.40-5.60) X 10*6/uL Hgb 12.5 L 12.2 L (13.0-17.0) g/dL Hct 38.7 L 37.0 L (39.6-50.0) % MPV 9.4 L (9.5-12.2) fL Immature Gran # 0.07 H (0.00-0.04) X 10*3/uL Neutrophils # 13.25 H 11.4 H (1.80-7.70) X 10*3/uL Lymphocytes # 0.46 L 0.7 L (0.90-5.00) X 10*3/uL Eosinophils # 0 L (0.04-0.35) X 10*3/uL Chloride 112 H (96-109) mmol/L Carbon Dioxide 19.9 L (21.6-31.8) mmol/L Anion Gap 13.10 H (4.00-12.00) mmol/L BUN 63.0 H (9.0-27.0) mg/dL Creatinine 3.5 H (0.6-1.5) mg/dL Est GFR (CKD-EPI)AfAm 19.2 L (60.0-200.0) Est GFR (CKD-EPI)NonAf 16.6 L (60.0-200.0) Glucose 145 H (70-110) mg/dL AST 65 H (14-35) U/L ALT 57 H (10-49) U/L Total Protein 5.9 L (6.2-8.2) g/dL Albumin (3.5-5.0) g/dL Lipase 1923 H (14-60) U/L 08/01/20 Range/Units 06:18 WBC (4.50-10.00) X 10*3/uL RBC (4.40-5.60) X 10*6/uL Hgb (13.0-17.0) g/dL Hct (39.6-50.0) % MPV (9.5-12.2) fL Immature Gran # (0.00-0.04) X 10*3/uL Neutrophils # (1.80-7.70) X 10*3/uL Lymphocytes # (0.90-5.00) X 10*3/uL Eosinophils # (0.04-0.35) X 10*3/uL Chloride 109 H (96-109) mmol/L Carbon Dioxide 20 L (21.6-31.8) mmol/L Anion Gap (4.00-12.00) mmol/L BUN 50 H (9.0-27.0) mg/dL Creatinine 2.88 H (0.6-1.5) mg/dL Est GFR (CKD-EPI)AfAm (60.0-200.0) Est GFR (CKD-EPI)NonAf (60.0-200.0) Glucose 131 H (70-110) mg/dL AST (14-35) U/L ALT (10-49) U/L Total Protein 6.2 L (6.2-8.2) g/dL Albumin 3.4 L (3.5-5.0) g/dL Lipase 1915 H (14-60) U/L Assessment and Plan Assessment: -Acute pancreatitis: Etiology is not clear patient is not an alcoholic. Patient will be continued on IV fluids patient will remain nothing by mouth bowel rest. Although some of his medications have been resumed like carbidopa levodopa and Prozac. Gastroenterology and general surgery following. Surgery planning on cholecystectomy tomorrow -Renal failure: Unsure of past medical history although reports he does have chronic kidney disease stage III and one kidney. Creatinine is slightly improved at 2.55 and will continue with IV hydration and have consulted nephrology. Continue with IV fluids. Creatinine is improved today at 2.55 -Hyperkalemia: Secondary to lisinopril and acute renal failure which will be held -Hypertension patient is on Norvasc which will be resumed -Gastritis duodenitis for which patient will be on Protonix -DVT prophylaxis with Lovenox plan: Continue with current medications and IV fluids. Surgery and GI following and planning cholecystectomy tomorrow. Nephrology consulted as creatinine is 2.55. Patient is a poor historian although at the bedside states he does have chronic kidney disease stage III and one kidney. Patient has been nothing by mouth at midnight. Repeat a.m. labs and continue to monitor closely. Patient is considered low risk for cholecystectomy and is medically clear for surgery today.
--- NOTE | 2020-08-01 11:05 | XR ---
EXAMINATION TYPE: XR chest 1V DATE OF EXAM: 08/01/2020 COMPARISON: NONE HISTORY: Shortness of breath TECHNIQUE: Single frontal view of the chest is obtained. FINDINGS: Bibasilar infiltrate and small effusion. Heart size normal. Prominence of the upper medias tinum. May be related to ectatic vasculature. Recommend follow-up standard PA and lateral views the c hest with the patient's condition tolerates to exclude underlying adenopathy or enlarged thyroid, mas s. Chronic rib deformities are seen in the left rib cage. No pneumothorax. No overt failure. IMPRESSION: 1. Bilateral lower lobe infiltrate and small effusion. See above.
[2020-08-01] MEDS ORDERED: IV FLUID CONTINUATION 1,000 ML IV ONE (12:24)
[2020-08-01] MEDS ORDERED: HEPARIN SODIUM,PORCINE 5,000 UNIT/ML 1 ML VIAL ONE (12:53)
[2020-08-01] MEDS ORDERED: ONDANSETRON 4 MG/2 ML VIAL ONE (12:53)
[2020-08-01] MEDS ORDERED: ONDANSETRON 4 MG/2 ML VIAL IVP ONE (12:58)
[2020-08-01] MEDS ORDERED: DEXAMETHASONE SOD PHOSPHATE 4 MG/ML 1 ML VIAL IV ONE (12:58)
--- NOTE | 2020-08-01 13:16 | P.PN ---
Subjective Progress Note Date: 08/01/20 Principal diagnosis: Epigastric pain, pancreatitis This is a pleasant 69-year-old male patient who was transferred from [facility] very presented with acute onset of severe epigastric pain that started 2 days ago. The pain progressively got worse he had multiple episodes of nausea and vomiting. He denied any fevers or chills. At [facility] he was noted to have an elevated lipase greater than 40,000 subcu was transferred to [facility]. He had a CT of the abdomen and pelvis done at [facility] that showed small gallstones but no biliary ductal dilation. Today the patient is seen and examined lying in bed. He is scheduled for cholecystectomy today. He denies any abdominal pain, nausea, or vomiting at this time. Liver enzymes continued to trend down. Objective - Vital Signs Vital signs: Vital Signs Temp 97.8 F 08/01/20 05:11 Pulse 102 H 08/01/20 05:11 Resp 16 08/01/20 05:11 BP 163/89 08/01/20 05:11 Pulse Ox 91 L 08/01/20 05:11 Intake & Output 07/31/20 08/01/20 08/01/20 18:59 06:59 18:59 Intake Total 1800 1000 Output Total 200 950 Balance 1600 50 Weight 75.75 kg Intake: Intake, IV Titration 1800 1000 Amount Sodium Chloride 0.9% 1, 1800 1000 000 ml @ 100 mls/hr IV . Q10H [facility] Rx#:[id number] Output: Urine 200 950 Other: Voiding Method Toilet Toilet # Voids 0 # Bowel Movements 0 - Exam General appearance: The patient is alert, oriented, appears in no acute distress. HET: Head is normocephalic and atraumatic. Conjunctiva pink. Sclera anicteric. Neck: Supple without lymphadenopathy. Abdomen: Soft, mild epigastric tenderness, nondistended with bowel sounds. No guarding or rigidity. Extremities: Normal skin color and turgor. No pedal edema Skin: No rashes, no jaundice Neurological: No focal deficits. Alert and oriented 3. - Labs CBC & Chem 7: 08/01/20 06:18 08/01/20 06:18 Labs: Abnormal Lab Results - Last 24 Hours (Table) 07/31/20 07/31/20 08/01/20 Range/Units 06:53 06:53 06:18 WBC 14.47 H 12.8 H (4.50-10.00) X 10*3/uL RBC 4.31 L 4.16 L (4.40-5.60) X 10*6/uL Hgb 12.5 L 12.2 L (13.0-17.0) g/dL Hct 38.7 L 37.0 L (39.6-50.0) % MPV 9.4 L (9.5-12.2) fL Immature Gran # 0.07 H (0.00-0.04) X 10*3/uL Neutrophils # 13.25 H 11.4 H (1.80-7.70) X 10*3/uL Lymphocytes # 0.46 L 0.7 L (0.90-5.00) X 10*3/uL Eosinophils # 0 L (0.04-0.35) X 10*3/uL Chloride 112 H (96-109) mmol/L Carbon Dioxide 19.9 L (21.6-31.8) mmol/L Anion Gap 13.10 H (4.00-12.00) mmol/L BUN 63.0 H (9.0-27.0) mg/dL Creatinine 3.5 H (0.6-1.5) mg/dL Est GFR (CKD-EPI)AfAm 19.2 L (60.0-200.0) Est GFR (CKD-EPI)NonAf 16.6 L (60.0-200.0) Glucose 145 H (70-110) mg/dL AST 65 H (14-35) U/L ALT 57 H (10-49) U/L Total Protein 5.9 L (6.2-8.2) g/dL Albumin (3.5-5.0) g/dL Lipase 1923 H (14-60) U/L 08/01/20 Range/Units 06:18 WBC (4.50-10.00) X 10*3/uL RBC (4.40-5.60) X 10*6/uL Hgb (13.0-17.0) g/dL Hct (39.6-50.0) % MPV (9.5-12.2) fL Immature Gran # (0.00-0.04) X 10*3/uL Neutrophils # (1.80-7.70) X 10*3/uL Lymphocytes # (0.90-5.00) X 10*3/uL Eosinophils # (0.04-0.35) X 10*3/uL Chloride 109 H (96-109) mmol/L Carbon Dioxide 20 L (21.6-31.8) mmol/L Anion Gap (4.00-12.00) mmol/L BUN 50 H (9.0-27.0) mg/dL Creatinine 2.88 H (0.6-1.5) mg/dL Est GFR (CKD-EPI)AfAm (60.0-200.0) Est GFR (CKD-EPI)NonAf (60.0-200.0) Glucose 131 H (70-110) mg/dL AST (14-35) U/L ALT (10-49) U/L Total Protein 6.2 L (6.2-8.2) g/dL Albumin 3.4 L (3.5-5.0) g/dL Lipase 1915 H (14-60) U/L Assessment and Plan (1) Epigastric pain Narrative/Plan: This is 69-year-old gentleman who was a transfer from [facility] acute severe epigastric pain that started 2 days ago, he was noted to have an elevated lipase consistent with acute pancreatitis. He was also noted to have mild elevation of serum transaminases and bilirubin up to 1.8. A computed tomography scan of the abdomen done at [facility] showed multiple stones but no bili yelena ductal dilation. Most likely dealing with acute gallstone pancreatitis. Patient is scheduled for cholecystectomy today with surgical services Current Visit: Yes Status: Acute Code(s): R10.13 - EPIGASTRIC PAIN SNOMED Code(s): 51724484 (2) Acute pancreatitis Narrative/Plan: Leukocytosis related to pancreatitis Current Visit: Yes Status: Acute Code(s): K85.90 - ACUTE PANCREATITIS WITHOUT NECROSIS OR INFECTION, UNSP SNOMED Code(s): 391726708 Plan: 1. Continue supportive care 2. No plans for any endoscopic intervention at this time. We will continue to monitor. 3. Diet per surgical services 4. Patient scheduled for cholecystectomy today 5. Repeat LFTs normal Thank you for this consultation we will sign off at this time Dr. K Tumma I agree with the dictator's note, documented as a scribe by Karen Ness.
[2020-08-01] MEDS: HEPARIN SODIUM,PORCINE 5,000 UNIT/ML 1 ML VIAL SQ SCH (13:18)
--- NOTE | 2020-08-01 13:19 | P.NPCON ---
History of Present Illness - Reason for Consult acute renal failure, chronic renal failure - History of Present Illness Reason for consultation: Acute kidney injury on chronic kidney disease History of present illness: Patient is a 69-year-old male seen in consultation for acute kidney injury and chronic kidney disease. Patient has chronic kidney disease stage III and was following with a supervising editor news reel in [place]. He recently moved to [place] and has not seen a supervising editor news reel. Patient presented to the hospital with intractable nausea and vomiting and abdominal pain. He has been evaluated by surgery as well as GI. He is on antibiotics for gallstone pancreatitis. Scheduled for cholecystectomy today. Lipase level was over 20,000 on admission and is 1915 this morning. Creatinine peaked at 3.5 this admission and is 2.8 today. He is receiving IV fluids. Has been voiding. No hematuria or dysuria. Denies use of nonsteroidals. No history of diabetes. Denies family history of renal disease. No edema. 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 Vital signs are stable. General: The patient appeared well nourished and normally developed. HEENT: Head exam is unremarkable. Neck is without jugular venous distension. LUNGS: Breath sounds decreased. HEART: Rate and Rhythm are regular. ABDOMEN: Soft, nontender. EXTREMITITES: No edema. Past Medical History Past Medical History: Fibromyalgia, Hyperlipidemia, Hypertension, Neurologic Disorder Additional Past Medical History / Comment(s): Parkinson's disease, occasional d ifficulty swallowing, recent fall with L sided rib fractures, benign colon polyps. History of Any Multi-Drug Resistant Organisms: None Reported Past Surgical History: Hernia Repair Additional Past Surgical History / Comment(s): R inguinal hernia repair, colonoscopies. Past Anesthesia/Blood Transfusion Reactions: No Reported Reaction Smoking Status: Never smoker - Past Family History Father Additional Family Medical History / Comment(s): Father never went to the doctors. He lived to be 83 yrs old. Mother Family Medical History: Coronary Artery Disease (CAD), Diabetes Mellitus, Myoc ardial Infarction (MO) Additional Family Medical History / Comment(s): Mother of a MO at the age of 61 yrs. Medications and Allergies Home Medications Medication Instructions Recorded Confirmed Type Atorvastatin [Lipitor] 40 mg PO DAILY 07/30/20 07/30/20 History Carbidopa-Levodopa 25-100 mg 1 tab PO BID@1000,1300 07/30/20 07/30/20 History [Sinemet 25-100] Carbidopa-Levodopa 25-100 mg 2 tab PO BID@0700,1600 07/30/20 07/30/20 History [Sinemet 25-100] Cholecalciferol [Vitamin D3 (25 50 mcg PO DAILY 07/30/20 07/30/20 History Mcg = 1000 Iu)] Cyanocobalamin (Vitamin B-12) 1,000 mcg PO BID 07/30/20 07/30/20 History [Vitamin B-12] EPINEPHrine (Auto Inject) [Epipen] 0.3 mg IM ONCE PRN 07/30/20 07/30/20 History Enalapril [Vasotec] 20 mg PO BID 07/30/20 07/30/20 History FLUoxetine HCL [PROzac] 20 mg PO DAILY 07/30/20 07/30/20 History Gemfibrozil [Lopid] 600 mg PO DAILY 07/30/20 07/30/20 History amLODIPine [Norvasc] 10 mg PO DAILY 07/30/20 07/30/20 History Allergies Allergy/AdvReac Type Severity Reaction Status Date / Time aspirin Allergy Anaphylaxis Verified 07/30/20 07:15 cyclobenzaprine Allergy Anaphylaxis Verified 07/30/20 07:15 [From Flexeril] Penicillins Allergy Anaphylaxis Verified 07/30/20 07:15 Physical Exam Vitals: Vital Signs Temp Pulse Resp BP Pulse Ox 08/01/20 12:24 98.6 F 105 H 16 162/78 93 L 08/01/20 05:11 97.8 F 102 H 16 163/89 91 L 07/31/20 20:35 99.0 F 103 H 16 150/81 91 L 07/31/20 13:10 97.8 F 102 H 20 131/78 94 L Intake and Output 07/31/20 08/01/20 08/01/20 22:59 06:59 14:59 Intake Total 1800 1000 Output Total 488 148 5757 Balance 1300 350 -2000 Intake: Intake, IV Titration 1800 1000 Amount Sodium Chloride 0.9% 1, 1800 1000 000 ml @ 100 mls/hr IV . [facility]H [facility] Rx#:[id number] Output: Urine 879 668 0538 Other: Voiding Method Toilet # Voids 0 2 # Bowel Movements 0 Results - Lab Results Most recent lab results Calcium 9.6 mg/dL (8.4-10.2) 08/01/20 06:18 Phosphorus 5.0 mg/dL (2.4-5.1) 07/31/20 06:53 Magnesium 1.6 mg/dL (1.5-2.4) 07/31/20 06:53 08/01/20 06:18 08/01/20 06:18 Assessment and Plan Plan: Assessment: 1. Acute kidney injury mostly prerenal secondary to hypovolemia from vomiting and poor intake, improving with IV hydration. Creatinine peaked at 3.5 this admission is 2.88 today. 2. Chronic kidney disease stage III secondary to solitary kidney and nephroscl erosis. Unknown baseline renal function. He was following with a supervising editor news reel in [place]. 3. Acute gallstone pancreatitis scheduled for cholecystectomy today. 4. Metabolic acidosis secondary to acute kidney injury and IV fluids. 5. Hypertension with chronic kidney disease. Stable. Plan: Maintain IV fluids. Add hydralazine 25 mg 3 times daily. Check urinalysis. Check renal ultrasound. Avoid nephrotoxins. Continue to monitor renal function and urine output. Thank you for the consultation. I will continue to follow the patient with you during his hospital stay.
[2020-08-01] MEDS ORDERED: NEOSTIGMINE 1 MG/ML 10 ML VIAL ONE (13:33)
[2020-08-01] MEDS ORDERED: PROPOFOL 10 MG/ML 20 ML VIAL IV ONE (13:33)
[2020-08-01] MEDS ORDERED: SUCCINYLCHOLINE CHLORIDE 100 MG/5 ML SYR IV ONE (13:33)
[2020-08-01] MEDS ORDERED: fentaNYL (PF) 50 MCG/ML 2 ML AMP ONE (13:33)
[2020-08-01] MEDS ORDERED: GLYCOPYRROLATE 0.2 MG/ML 2 ML VIAL ONE (13:33)
[2020-08-01] MEDS ORDERED: LIDOCAINE 1% INJ 10MG/ML (20 ML MDV) ONE (13:33)
[2020-08-01] MEDS ORDERED: ROCURONIUM 10 MG/ML (5 ML VIAL) IV ONE (13:33)
[2020-08-01] MEDS ORDERED: MIDAZOLAM 2 MG/2 ML VIAL ONE (13:33)
[2020-08-01] MEDS ORDERED: PHENYLEPHRINE-0.9% NACL SYG 1,000 MCG/10 ML SYRINGE ONE (13:33)
[2020-08-01] MEDS ORDERED: BUPIVACAINE-EPI 0.5%-1:200,000 10 ML VIAL SQ ONE ×2 (14:02)
--- NOTE | 2020-08-01 14:35 | P.OP ---
Date of Procedure: 08/01/20 Preoperative Diagnosis: Gallstone pancreatitis Postoperative Diagnosis: Gallstone pancreatitis Procedure(s) Performed: Laparoscopic cholecystectomy Anesthesia: JESSE Surgeon: Connor Shane Estimated Blood Loss (ml): 10 Pathology: other (Gallbladder) Condition: stable Disposition: PACU Description of Procedure: The patient was placed on the operating table. The patient received a general endotracheal tube anesthesia. The patients abdomen was prepped and draped in the usual sterile fashion. Through an infraumbilical stab incision, the fascia of the anterior abdominal wall was grasped with a pair of Kochers and then the Veress needle was placed in the peritoneal cavity. Position of the Veress needle was confirmed with positive drop test. The abdomen was then insufflated. After adequate insufflation, the 10 mm trocar was placed in the peritoneal cavity. Following this the laparoscope was placed in the peritoneal cavity. The patient was placed in the head-up, right side up position and then a 5 mm trocar was placed in the right lateral and right subcostal position under direct visualization. A 8 mm trocar was placed in the epigastric position. The gallbladder was grasped in the fundus and infundibulum. Traction on the gallbladder was placed in the lateral and the cephalad positions. The triangle of Calot was visualized.. The cystic duct was bluntly dissected until the union of the cystic duct and common bile duct was seen. A critical view of safety was achieved. The cystic duct was then divided and sealed with the Harmonic scissors. A PDS Endoloop was then placed throughout the cystic duct stump. The cystic artery divided and sealed with the Harmonic scissors. The gallbladder was then removed from the liver bed using Harmonic scissors. The gallbladder was then extracted through the epigastric port site. Operative field was checked for any bleeding spots and Harmonic scissors was used to coagulate the liver bed. The abdomen was irrigated. The trocars were removed. The skin was closed using interrupted 3-0 Vicryl suture. Dermabond dressing were applied. The patient tolerated the procedure well.
--- NOTE | 2020-08-01 16:29 | US ---
EXAMINATION TYPE: US kidneys/renal and bladder DATE OF EXAM: 08/01/2020 COMPARISON: CT CLINICAL HISTORY: elaina. EXAM MEASUREMENTS: Right Kidney: not visualized Left Kidney: 11.6 x 6.6 x 6.3 cm Right Kidney: patient states only one kidney, right kidney not visualized. Left Kidney: No hydronephrosis or masses seen Bladder: wnl Bilateral Jets seen: only left jet seen Incidental note is made of right pleural effusion. IMPRESSION: Left renal ultrasound unremarkable. 2. Incidental note made of right pleural effusion
[2020-08-01] MEDS: hydrALAZINE HCL 25 MG TAB PO SCH ×2 (17:23→21:27)
[2020-08-01] MEDS: LEVOFLOXACIN 250MG-D5W PMX 250 MG in DEXTROSE/WATER 1 50ML.BAG IVPB SCH (17:24)
[2020-08-01 20:09] LABS: Appearance,Urine Clear (Clear); Bacteria,Urine Rare /hpf; Bilirubin,Urine Negative (Negative); Blood,Urine Small (Negative); Color,Urine Light Yellow; Glucose,Urine (UA) 1+ (Negative); Ketones,Urine Negative (Negative); Leukocyte Esterase,Urine Negative (Negative); Mucus,Urine Rare /hpf; Nitrite,Urine Negative (Negative); PH, Urine 5.5 (5.0-8.0); Protein,Urine 2+ (Negative); RBC,Urine <1 /hpf (0-5); Specific Gravity,Urine 1.009 (1.001-1.035); Urobilinogen,Urine <2.0 mg/dL (<2.0)
[2020-08-02] MEDS: SODIUM CHLORIDE 0.9% 1,000 ML IV SCH ×2 (01:30→09:07)
[2020-08-02 05:59] VITALS: PULSE 85
[2020-08-02] MEDS: amLODIPine 10 MG TAB PO SCH (08:23)
[2020-08-02] MEDS: FLUoxetine HCL 20 MG CAP PO SCH (08:23)
[2020-08-02] MEDS: hydrALAZINE HCL 25 MG TAB PO SCH ×2 (08:23→15:22)
[2020-08-02] MEDS: CARBIDOPA-LEVODOPA 25-100 MG 1 EACH TAB PO SCH ×3 (08:24→15:24)
[2020-08-02] MEDS: PANTOPRAZOLE 40 MG/10 ML VIAL IV SCH (08:24)
[2020-08-02] MEDS: HEPARIN SODIUM,PORCINE 5,000 UNIT/ML 1 ML VIAL SQ SCH (08:24)
[2020-08-02 09:11] LABS: Basophils # (A) 0.01 X 10*3/uL (0.00-0.10); Basophils % (A) 0.1 %; Eosinophils # (A) 0.01 X 10*3/uL (0.04-0.35); Eosinophils % (A) 0.1 %; HCT 31.2 % (39.6-50.0); HGB 10.3 g/dL (13.0-17.0); Lymphocytes # (A) 0.64 X 10*3/uL (0.90-5.00); Lymphocytes % (A) 6.4 %; MCV 87.9 fL (80.0-97.0); Monocytes # (A) 0.61 X 10*3/uL (0.20-1.00); Monocytes % (A) 6.1 %; Neutrophils # (A) 8.68 X 10*3/uL (1.80-7.70); Neutrophils % (A) 86.8 %; Platelet Count 203 X 10*3/uL (140-440); RBC 3.55 X 10*6/uL (4.40-5.60); RDW 13.2 % (11.5-14.5)
[2020-08-02 10:15] LABS: African American GFR (CKD) 31.9 (60.0-200.0); Albumin 3.5 g/dL (3.80-4.90); Albumin/Globulin Ratio 1.84 (1.60-3.17); Anion Gap 11.1 mmol/L (4.00-12.00); BUN/Creat Ratio 19.57 Ratio (12.00-20.00); Calcium 9.1 mg/dL (8.7-10.3); Carbon Dioxide 19.9 mmol/L (21.6-31.8); Globulin 1.9 g/dL (1.6-3.3); Non-African American GFR(CKD) 27.5 (60.0-200.0); Potassium 4.1 mmol/L (3.5-5.5); Total Bilirubin 0.6 mg/dL (0.2-1.2); Total Protein 5.4 g/dL (6.2-8.2)
--- NOTE | 2020-08-02 11:19 | P.PN ---
Subjective Progress Note Date: 08/02/20 Principal diagnosis: Gallstone pancreatitis Patient doing well today. Denies pain. Tolerating clear liquids. Liver enzymes normal. Lipase down to 55. CBC looks good. He would like to go home. Objective - Vital Signs Vital signs: Vital Signs Temp 98.3 F 08/02/20 05:10 Pulse 85 08/02/20 05:10 Resp 20 08/02/20 05:10 BP 159/82 08/02/20 05:10 Pulse Ox 94 L 08/02/20 05:10 Intake & Output 08/01/20 08/02/20 08/02/20 18:59 06:59 18:59 Intake Total 1550 1490 Output Total 3253 Balance -1703 1490 Intake: IV 750 Intake, IV Titration 800 900 Amount Sodium Chloride 0.9% 1, 800 900 000 ml @ 100 mls/hr IV . Q10H [facility] Rx#:[id number] Oral 590 Output: Urine 3250 Estimated Blood Loss 3 Other: Voiding Method Toilet Toilet # Voids 3 5 1 - Exam Abdomen: Soft, nondistended, incisions clean and dry, mild tenderness - Labs CBC & Chem 7: 08/02/20 06:08 08/02/20 06:08 Labs: Abnormal Lab Results - Last 24 Hours (Table) 08/01/20 08/02/20 08/02/20 Range/Units 19:50 06:08 06:08 RBC 3.55 L (4.40-5.60) X 10*6/uL Hgb 10.3 L (13.0-17.0) g/dL Hct 31.2 L (39.6-50.0) % MPV 9.0 L (9.5-12.2) fL Immature Gran # 0.05 H (0.00-0.04) X 10*3/uL Neutrophils # 8.68 H (1.80-7.70) X 10*3/uL Lymphocytes # 0.64 L (0.90-5.00) X 10*3/uL Eosinophils # 0.01 L (0.04-0.35) X 10*3/uL Chloride 110 H (96-109) mmol/L Carbon Dioxide 19.9 L (21.6-31.8) mmol/L BUN 45.0 H (9.0-27.0) mg/dL Creatinine 2.3 H (0.6-1.5) mg/dL Est GFR (CKD-EPI)AfAm 31.9 L (60.0-200.0) Est GFR (CKD-EPI)NonAf 27.5 L (60.0-200.0) Glucose 119 H (70-110) mg/dL Alkaline Phosphatase 30 L (41-126) U/L Total Protein 5.4 L (6.2-8.2) g/dL Albumin 3.50 L (3.80-4.90) g/dL Urine Protein 2+ H (Negative) Urine Glucose (UA) 1+ H (Negative) Urine Blood Small H (Negative) Urine Bacteria Rare H (None) /hpf Urine Mucus Rare H (None) /hpf Assessment and Plan (1) Gallstone pancreatitis Narrative/Plan: Patient doing well today. Increase diet. Possible discharge later today. Current Visit: Yes Status: Acute Code(s): K85.10 - BILIARY ACUTE PANCREA TITIS WITHOUT NECROSIS OR INFECTION SNOMED Code(s): 02827495
--- NOTE | 2020-08-02 14:31 | PN ---
PROGRESS NOTE Patient is seen for followup for chronic kidney disease and acute kidney injury. Renal function has been slowly improving. Patient is tolerating oral intake. He is maintained on IV fluids. He is being treated for pancreatitis. Lipase has significantly improved down to 55 now from more than 20,000 on July 30. PHYSICAL EXAMINATION: On examination today, blood pressure was 159/82, heart rate 85 per minute, patient is afebrile. Examination of the heart S1, S2. Examination of the lungs, decreased breath sounds at bases. Abdomen is soft, nontender. Examination of lower extremities shows no significant edema. PLASTICS ENGINEER exam grossly intact. LAB: Show sodium 141, potassium 4.1, chloride 110, CO2 is 19, BUN 45, creatinine 2.3, hemoglobin 10.3 g/dL. ASSESSMENT: 1. Acute kidney injury, prerenal, currently improving. 2. Chronic kidney disease, unknown baseline, possibly stage IV with a solitary kidney. Patient has a solitary kidney since , which is his left kidney. 3. Acute gallstone pancreatitis. 4. Ascites status post cholecystectomy yesterday. 5. Metabolic acidosis, now improved. PLAN: Increase oral intake as tolerated. Maintain hydration. Repeat labs in a.m. The patient will need followup as outpatient for CKD. MMODL / IJN: [id number] /
[2020-08-02] MEDS: LEVOFLOXACIN 250MG-D5W PMX 250 MG in DEXTROSE/WATER 1 50ML.BAG IVPB SCH (14:33)
[2020-08-02] MEDS ORDERED: ACETAMINOPHEN TAB 325 MG TAB PO STA (14:38)
[2020-08-02] MEDS ORDERED: ACETAMINOPHEN TAB 325 MG TAB PO PRN (14:53)
[2020-08-02 15:12] VITALS: BP 137/85; RESP 18; TEMP 98
--- NOTE | 2020-08-02 18:03 | P.DS ---
Providers Date of admission: 07/30/20 04:26 Attending physician: Soumya Dunn Consults: 07/30/20 04:27 Consult Physician Routine Consulting Provider: Connor Shane Consult Reason/Comments: doug Do you want consulting provider notified?: Yes 07/31/20 15:28 Consult Physician Stat Consulting Provider: Barney Ray Consult Reason/Comments: Acute kidney injury, having cholecystectomy Do you want consulting provider notified?: Yes Primary care physician: Ariadna Padron [facility] Course: Patient is a 69-year-old pleasant male was transferred from a [facility] admitted with severe epigastric abdominal pain along with nausea vomiting multiple episodes. Patient will had a CT of the abdomen also found to have highly elevated lipase was subsequently transferred here for management of pancreatitis CT did show some duodenitis gastritis and possibility of cholecystitis. Surgery evaluated the patient repeated ultrasound of the gallbladder which didn't show any gallstones at this time. Patient does have leukocytosis patient the was having severe abdominal pain which significantly improved today. Patient lipase continues to be elevated. Gastroenterology was consulted as well with concerns of choledocholithiasis although these were not evident on the gallbladder ultrasound. Patient does have history of Parkinson's and patient does have some residual parkinsonian tremor. Patient's creatinine is found to be around 3 his baseline is not available. 07/31/2020 Patient is seen and evaluated and follow-up continues to have abdominal discomfort and is nothing by mouth. GI and surgery following an patient is awaiting to undergo cholecystectomy tomorrow. Patient's kidney functions continue to worsen and current creatinine is 3.5. Nephrology consulted. We'll continue with IV hydration and closely monitor. Will repeat a.m. labs. Patient will be started on clear liquids and nothing by mouth again at midnight. 08/01/2020 Patient is seen in follow-up this morning with no acute overnight issues. Patient continues to have abdominal discomfort and awaiting to undergo cholecystectomy this morning. Patient creatinine was found to be 3.5 although has improved today at 2.55 and patient does have a history of chronic kidney disease stage III and one kidney per at the bedside. Patient is on gentle IV hydration will continue. Patient is currently nothing by mouth for the procedure. Nephrology was consulted and currently pending. Patient is considered low risk and medically clear for surgery this morning. 08/02/2020 Patient had cholecystectomy clinically doing well passing gas was cleared by general surgery. Patient does have only one kidney although his baseline creatinine is not available is probably high patient present creatinine improved and are in their is around 2.3 patient will follow closely with nephrology MILI inhibitor to her will be discontinued and patient was started on hydralazine for blood pressure which will be continued and patient is also on amlodipine which will be continued. - Exam GENERAL: The patient is alert and oriented x3, not in any acute distress. Well developed, well nourished. HEENT: Pupils are round and equally reacting to light. EOMI. No scleral icterus. No conjunctival pallor. Normocephalic, atraumatic. No pharyngeal erythema. No thyromegaly. CARDIOVASCULAR: S1 and S2 present. No murmurs, rubs, or gallops. PULMONARY: Chest is clear to auscultation, no wheezing or crackles. ABDOMEN: Soft, mild tenderness in the epigastric area, nondistended, normoactive bowel sounds. No palpable organomegaly. MUSCULOSKELETAL: No joint swelling or deformity. EXTREMITIES: No cyanosis, clubbing, or pedal edema. NEUROLOGICAL: Gross neurological examination did not reveal any focal deficits. SKIN: No rashes. Assessment and Plan Assessment: -Acute pancreatitis: Gallstone pancreatitis patient is status post cholecystectomy patient has cholecystitis as well -Renal failure: Patient has acute renal failure on chronic kidney disease baseline is not available present creatinine at discharge is 2.3 which improved from around 3.5 -Hyperkalemia: Secondary to lisinopril and acute renal failure which will be held -Hypertension patient is on Norvasc which will be resumed -Gastritis duodenitis for which patient will be on Protonix Patient Condition at Discharge: Fair Plan - Discharge Summary Discharge Rx Participant: No New Discharge Prescriptions: New hydrALAZINE HCL [Apresoline] 50 mg PO TID #90 tab Continue Gemfibrozil [Lopid] 600 mg PO DAILY FLUoxetine HCL [PROzac] 20 mg PO DAILY EPINEPHrine (Auto Inject) [Epipen] 0.3 mg IM ONCE PRN PRN Reason: Anaphylaxis Carbidopa-Levodopa 25-100 mg [Sinemet 25-100 mg] 2 tab PO BID@0700,1600 Carbidopa-Levodopa 25-100 mg [Sinemet 25-100 mg] 1 tab PO BID@1000,1300 amLODIPine [Norvasc] 10 mg PO DAILY Atorvastatin [Lipitor] 40 mg PO DAILY Cholecalciferol [Vitamin D3 (25 Mcg = 1000 Iu)] 50 mcg PO DAILY Cyanocobalamin (Vitamin B-12) [Vitamin B-12] 1,000 mcg PO BID Discontinued Enalapril [Vasotec] 20 mg PO BID Discharge Medication List Atorvastatin [Lipitor] 40 mg PO DAILY 07/30/20 [History] Carbidopa-Levodopa 25-100 mg [Sinemet 25-100 mg] 1 tab PO BID@1000,1300 07/30/20 [History] Carbidopa-Levodopa 25-100 mg [Sinemet 25-100 mg] 2 tab PO BID@0700,1600 07/30/20 [History] Cholecalciferol [Vitamin D3 (25 Mcg = 1000 Iu)] 50 mcg PO DAILY 07/30/20 [History] Cyanocobalamin (Vitamin B-12) [Vitamin B-12] 1,000 mcg PO BID 07/30/20 [History] EPINEPHrine (Auto Inject) [Epipen] 0.3 mg IM ONCE PRN 07/30/20 [History] FLUoxetine HCL [PROzac] 20 mg PO DAILY 07/30/20 [History] Gemfibrozil [Lopid] 600 mg PO DAILY 07/30/20 [History] amLODIPine [Norvasc] 10 mg PO DAILY 07/30/20 [History] hydrALAZINE HCL [Apresoline] 50 mg PO TID #90 tab 08/02/20 [Rx] Follow up Appointment(s)/Referral(s): [facility], [NON-STAFF] - 1 Week (call tuesday to make appt. office closed at time of discharge) Ariadna Padron MD [Primary Care Provider] - 3 Days (call tuesday to make appt. office closed at time of discharge) Barney Ray DO [STAFF PHYSICIAN] - 1 Week (call tuesday to make appt. office closed at time of discharge) Connor Shane MD [STAFF PHYSICIAN] - 1 Week (call tuesday to make appt. office closed at time of discharge) Patient Instructions/Handouts: *Surgery [facility] - Laparoscopic Cholecystectomy Discharge Instructions, Hydralazine (By mouth), Pancreatitis (DC), Chronic Kidney Disease (DC) Discharge Disposition: HOME WITH HOME HEALTH SERVICES
== END 2020-08-02 16:40 | disposition home health service (06) | DRG 418 ==
LOC: EC 03:40 → 4SSUR 04:26 → 5NMEDONC 23:58
PROVIDERS: ADMIT Hospitalist; ATTEND Hospitalist
PROC: 0FT44ZZ Resection of Gallbladder, Percutaneous Endoscopic Approach (ICD-10-PCS; principal; 2020-08-01 09:00)
DX: K85.10 Biliary acute pancreatitis without necrosis or infection (principal); N17.9 Acute kidney failure, unspecified; E87.2 Acidosis; R18.8 Other ascites; Q60.0 Renal agenesis, unilateral; K80.00 Calculus of gallbladder with acute cholecystitis without obstruction; G20 Parkinson's disease; N18.30 Chronic kidney disease, stage 3 unspecified; Z20.822 Contact with and (suspected) exposure to COVID-19; I12.9 Hypertensive chronic kidney disease with stage 1 through stage 4 chronic kidney disease, or unspecified chronic kidney disease; E86.1 Hypovolemia; E87.5 Hyperkalemia; T46.4X5A Adverse effect of angiotensin-converting-enzyme inhibitors, initial encounter; E78.5 Hyperlipidemia, unspecified; R13.10 Dysphagia, unspecified; K29.80 Duodenitis without bleeding; K29.70 Gastritis, unspecified, without bleeding; F32.9 Major depressive disorder, single episode, unspecified; F41.9 Anxiety disorder, unspecified; M79.7 Fibromyalgia; Z79.899 Other long term (current) drug therapy; Z87.891 Personal history of nicotine dependence; Z87.81 Personal history of (healed) traumatic fracture; Z87.19 Personal history of other diseases of the digestive system; Z98.890 Other specified postprocedural states; Z88.6 Allergy status to analgesic agent; Z88.0 Allergy status to penicillin; Z88.8 Allergy status to other drugs, medicaments and biological substances; Z82.49 Family history of ischemic heart disease and other diseases of the circulatory system; Z83.3 Family history of diabetes mellitus
CPT/HCPCS: 71045; 76705; 76770; 80053; 81001; 83690; 83735; 84100; 85025; 87635; 88304; 96372; 96374; 96375; 99285